=== PATIENT | male | born 1990 | race African-American/Black ===

== ENCOUNTER 2018-08-07 09:16 | Emergency (ER) | payer OTHER ==
[~2018-08-07] VITALS: Ht 175.3 cm; Wt 125.8 kg
[2018-08-07 09:19] VITALS: Ht 175.3 cm; Wt 125.8 kg
[2018-08-07] MEDS ORDERED: AMOX1TAB10 PO (09:29)
[2018-08-07] MEDS ORDERED: NEOMYC/POLYMYX/BACIT 30 GM OINT TOP ONE (09:30)
[2018-08-07] MEDS ORDERED: DIPHTH/TET/ACEL PERTUSS (ADULT) 0.5 ML VIAL IM* ONE (09:30)
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
== END 2018-08-07 10:25 | disposition home or self-care (01) ==
LOC: FTE 09:16
DX: S61.452A Open bite of left hand, initial encounter (principal); W50.3XXA Accidental bite by another person, initial encounter; Y92.9 Unspecified place or not applicable; Z23 Encounter for immunization
CPT/HCPCS: 90715; Z7610; 90471

== ENCOUNTER → 2018-10-21 | Emergency (ER) | payer OTHER ==
[~2018-10-21] VITALS: Ht 175.3 cm; Wt 129.0 kg
[~2018-10-21] MED LIST: AMOX1TAB10 PO; DOXY100T20 PO; MUPI22OI2 TOP
[2018-10-21 09:28] VITALS: BP 133/58; PULSE 88; RESP 18; Ht 175.3 cm; Wt 129.0 kg
== END | disposition home or self-care (01) ==
LOC: FTE 09:21
DX: R21 Rash and other nonspecific skin eruption (principal); F17.210 Nicotine dependence, cigarettes, uncomplicated
CPT/HCPCS: 99283